=== PATIENT | male | born 2000 | race African-American/Black ===

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

== ENCOUNTER 2021-07-05 20:44 | Emergency (ER) | payer MEDICAID ==
[~2021-07-05] VITALS: Ht 175.3 cm; Wt 72.0 kg
[2021-07-05] MEDS ORDERED: IBUPROFEN 600MG TABLET PO ONE (21:45)
[2021-07-05] MEDS ORDERED: BACITRACIN ZINC OINT UDPKT TOP ONE (21:45)
[2021-07-06] MEDS ORDERED: IBUP-2029 MT (00:01)
[2021-07-06 00:42] VITALS: BP 128/71
== END 2021-07-06 00:57 | disposition home or self-care (01) ==
LOC: ER 20:44
DX: S80.212A Abrasion, left knee, initial encounter (principal); S00.81XA Abrasion of other part of head, initial encounter; V86.96XA Unspecified occupant of dirt bike or motor/cross bike injured in nontraffic accident, initial encounter; Y93.55 Activity, bike riding; Y92.410 Unspecified street and highway as the place of occurrence of the external cause
CPT/HCPCS: 99284